=== PATIENT | female | born 1945 | race Caucasian/White ===

== ENCOUNTER → 2019-06-11 11:12 | Outpatient (CLI) | payer MEDICARE, BC | END | disposition home or self-care (01) | LOC: D.US 11:12 | PROVIDERS: ATTEND Internal Medicine Interventional Cardiology | DX: R42 Dizziness and giddiness (principal) ==

== ENCOUNTER → 2020-06-22 10:26 | Outpatient (CLI) | payer MEDICARE, BC ==
--- NOTE | ~2020-06-22 | EC ---
PATIENT:ARYA MUÑOZ DATE OF SERVICE: 06/22/20 SEX: F MEDICAL RECORD: [id number] DATE OF : 49 LOCATION:[facility] AGE OF PATIENT: 74 ADMISSION DATE: 06/22/20 REFERRING PHYSICIAN: INTERPRETING PHYSICIAN: ANNE MARIE BRITO MD ECHOCARDIOGRAM REPORT ECHO CHARGES 4 ECHO COMPLETE Date: 06/22/20 CLINICAL DIAGNOSIS: HX OF OTHRO HYPOTENSION/NEAR SYNCOPE, ASSESS EF AND VALVES ECHOCARDIOGRAPHIC MEASUREMENTS (adult normal given) AC root (d.<3.7cm) 3.7 cm LV Septum d (<1.2 cm> 1.2 cm Valve Excursion 2.0 cm LV Septum (systole) 1.4 cm Left Atria (s.<4.0cm> 2.9 cm LVPW d(<1.2cm) 1.3 cm RV (d.<2.3cm) 3.7 cm LVPW (sytole) 1.4 cm LV diastole(<5.6CM) 4.3 cm MV E-F(>70mm/sec) cm LV systole 2.6 cm LVOT Diameter 1.7 cm MV exc.(>10mm) 1.3 cm Est.ejection fraction (50-75%) % DOPPLER: LVIT cm/sec A 86.0 cm/sec E 58.0 cm/sec LA cm/sec RVSP 27 mmHg LVOT 127 cm/sec AOP1/2T m/s Asc. Ao 169 cm/sec RVOT 69 cm/sec RA cm/sec PA 122 cm/sec AV Gradient Peak 11.39mmHg AV Mean 6.28 mmHg AV Area 1.6 cm MV Gradient Peak 3.58 mmHg MV Mean 1.19 mmHg MV Area cm COMMENTS: Bottom Man: 2 CHHAYA HERNANDES Base Loader: 3 Dr. Mcintyre TAPE# PACS Pericardial Effusion N DATE OF SERVICE: Adequate 2D, color-flow imaging, spectral Doppler, and M-Mode Borderline LVH. LV internal dimension is normal. Wall motion is normal. EF is greater than or equal to 55%. Aortic valve sclerosed without evidence of stenosis by Doppler interrogation. Left atrium is normal at 3.9 cm. Mitral valve shows no prolapse. Trace MR. Right-sided chambers are grossly normal. Trace TR. ECHOCARDIOGRAM REPORT [id number] ARYA MUÑOZ TRANSINT:[id number] Voice Confirmation ID: [id number] DOCUMENT ID: [id number] ANNE MARIE BRITO MD CC: [id number] DICTATION DATE: 06/23/201421 UNDERGROUND UTILITY LOCATOR: 06/23/201739 DEP CLI 06/22/20 [facility] [address] [place] [address]
== END | disposition home or self-care (01) ==
LOC: D.HCCECHO 10:26
PROVIDERS: ATTEND Internal Medicine Interventional Cardiology
DX: R42 Dizziness and giddiness (principal)